=== PATIENT | female | born 1970 | race Caucasian/White ===

== ENCOUNTER 2019-12-04 15:13 | Emergency (ER) | payer OTHER ==
[2019-12-04 15:42] VITALS: TEMP 98.2; BMI 27.4
--- NOTE | 2019-12-04 15:56 | PDOC ---
History of Present Illness - General Chief Complaint: Palpitations Stated Complaint: PALPITATIONS Time Seen by Provider: 12/04/19 15:55 - History of Present Illness Initial Comments: Pt is a 49yo F with PMH depression, hypothyroid who presents with lightheadedness. Patient presents for episodes of warmth/dull ache in her chest, cold sweats, dry mouth, blurry vision, and lightheadedness/pre-syncope, followed by the need to defecate, then headache and left arm paresthesias. These episodes last for several minutes, and have occurred with increasing frequency which prompted her visit today. The episodes began in March, and she has been to multiple ED/urgent cares to assess these episodes, and she has been referred to neurology. She has seen Dr. Baljeet Arevalo, who scheduled her for a brain MRI today. PCP: Adam PMH: depression Meds: fluoxetine, synthroid Allergies: NKDA Review of Systems CONSTITUTIONAL:denies fever, chills, diaphoresis, generalized weakness, malaise, loss of appetite HEENT:reports blurry vision, denies rhinorrhea, nasal congestion, sore throat CARDIOVASCULAR:reports dull chest pain, lightheadedness, palpitations; denies irregular heart rate, peripheral edema RESPIRATORY:reports cough, shortness of breath, dyspnea with exertion, orthopnea, wheezing, hemoptysis GASTROINTESTINAL: denies abdominal pain, abdominal distension, nausea, vomiting, diarrhea, constipation, melena, hematochezia GENITOURINARY:denies dysuria, frequency, urgency, hesitancy, hematuria, flank pain, genital pain MUSCULOSKELETAL:denies myalgia, arthralgia, neck pain, back pain HEMATOLOGIC/IMMUNOLOGIC:denies easy bleeding, easy bruising ENDOCRINE: denies unexplained weight gain, unexplained weight loss, heat intolerance, cold intolerance NEUROLOGIC:denies headache, loss of consciousness, focal weakness or paresthesias, dizziness, unsteady gait, seizure, mental status changes, bladder or bowel incontinence SKIN:denies rash, itching, pallor PSYCHIATRIC:denies anxiety, depression, suicidal or homicidal ideation, hallucinations. Physical Exam General: awake, alert, fully oriented, in no acute distress, well developed, well nourished Head: normocephalic, atraumatic Eyes: PERRL, EOMI, anicteric sclera, conjunctiva clear ENT: Auricles normal inspection, hearing grossly normal, TMs clear bilaterally, nares patent, oropharynx clear without exudates, no nasal congestion, moist mucous membranes Neck: supple, normal ROM, no LAD, JVD or masses Lung: equal breath sounds b/l, CTA b/l, no crackles, wheezes; no distress, speaks full sentences Heart: RRR, normal S1, S2, no murmurs appreciated Abdomen: soft, non tender, normoactive bowel sounds, no guarding, rebound, masses Extremities: normal ROM, no edema, no erythema or tenderness, DP/PT pulses 2+ and symmetric, no clubbing, cyanosis Neuro: CN2-12 grossly intact, moves all extremities, normal speech, normal gait, sensation intact Skin: warm, dry, no rashes or lesions noted MDM Pt is a 49yo F with PMH depression, hypothyroid who presents with lightheadedness. DDx including but not limited to: ACS, arrhythmia, hyperthyroidism, anxiety/panic disorder Workup: labs, cxr, ekg TX: Reglan EKG: normal sinus rhythm, HR 87bpm, UT 182ms, QRS 70ms, QTc 450ms ED course Lab: no leukocytosis, no anemia, electrolytes WNL, ESR/CRP WNL, TSH WNL, troponin WNL, d-dimer WNL CT head: no acute intracranial pathology CXR: no acute chest pathology On reassessment, pt states JACKSON improved with Reglan. Patient stable for discharge. Informed of all lab and imaging results. Given follow up instructions and strict return precautions. Patient expressed understanding and agree to plan Disposition: Discharge to home Past History - Medical History Allergies/Adverse Reactions: Allergies Allergy/AdvReac Type Severity Reaction Status Date / Time ketorolac [From Toradol] Allergy Mild Rash Verified 12/04/19 15:33 Sulfa (Sulfonamide Allergy Mild Rash Verified 12/04/19 15:33 Antibiotics) COPD: No - Reproductive History Is Patient Now?: No - Psycho-Social/Smoking History Smoking History: Never smoked Have you smoked in the past 12 months: No Information on smoking cessation initiated: No - Substance Abuse Hx (Audit-C & DAST Scrn) How often the patient has a drink containing alcohol: 2-4 times / month Number of drinks the patient has on a typical day: 1 or 2 How often the patient has six or more drinks on one occasion: Never Score: In Men: 4 or > Positive; In Women: 3 or > Positive: 2 Screen Result (Pos requires Nsg. Audit-10AR): Negative In the last yr the pt used illegal drug/Rx for NonMed reason: No Score: Yes response is considered Positive: 0 Screen Result (Positive result requires Nsg. DAST-10): Negative *Physical Exam - Vital Signs Last Vital Signs Temp Pulse Resp BP Pulse Ox 98.2 F 72 17 138/85 100 12/04/19 15:30 12/04/19 15:30 12/04/19 15:30 12/04/19 15:30 12/04/19 15:30 ED Treatment Course - LABORATORY CBC & Chemistry Diagram: 12/04/19 16:35 12/04/19 16:35 Discharge - Discharge Information Problems reviewed: Yes Clinical Impression/Diagnosis: Palpitations Headache Qualifiers: Headache type: unspecified Headache chronicity pattern: acute headache Intractability: not intractable Qualified Code(s): R51 - Headache Condition: Stable Disposition: HOME - Follow up/Referral Referrals: Elinor Paez MD [Staff Physician] - Ramirez Medina MD [Primary Care Provider] - Ethan Askew MD [Staff Physician] - - Patient Discharge Instructions Patient Printed Discharge Instructions: DI for Headache, DI for Palpitations Additional Instructions: Please keep your MRI appointment for Sunday as scheduled. Please make a follow up appointment for the next week with the farm technician and the neurologist. Please drink plenty of fluids. Please take tylenol or motrin as needed for the headache. Please return to the ER with any further concerns or complaints. - Post Discharge Activity
[2019-12-04] MEDS ORDERED: METOCLOPRAMIDE HCL INJECTION 10 MG/2 ML VIAL IVPB ONE (17:33)
[2019-12-04] MEDS ORDERED: LACTATED RINGERS SOLUTION 1000 ML INFUS.BAG IV ONE (17:35)
[2019-12-04] MEDS ORDERED: METOCLOPRAMIDE HCL INJECTION 10 MG/2 ML VIAL ONE (17:39)
--- NOTE | 2019-12-04 18:11 | PDOC ---
Documentation entered by Tatiana Lewis SCRIBE, acting as scribe for Jo Ramírez DO. Jo Ramírez DO: This documentation has been prepared by the marisa, Tatiana Lewis SCRIBE, under my direction and personally reviewed by me in its entirety. I confirm that the documentation accurately reflects all work, treatment, procedures, and medical decision making performed by me. Attending Attestation - Resident Resident Name: Maria Elena Roberts - ED Attending Attestation I have performed the following: I have examined & evaluated the patient, The case was reviewed & discussed with the resident, I agree w/resident's findings & plan, Exceptions are as noted - HPI HPI: 12/04/19 17:28 The patient is a 49 year old female with past medical history significant for depression who presents to the emergency department with multiple complaints. The patient presents with frequent episodes of lightheadedness, warm sensation to chest, dull chest pain, dry mouth and blurry vision followed by a headache and left arm paresthesia. The patient reports this symptoms has been ongoing since March of 2019, and has been increasing in frequency since then. The patient reports multiple ER and UC visits for the symptoms, with unremarkable EKG, blood works and was given neurologist referral. The patient reports following up with the neurologist, who scheduled the patient for an MRI today. Patient was unable to get the MRI because she came to the ER for evaluation. Patient denies: fever, chills, or any other related symptoms. Allergies: ketorolac, sulfonamide antibiotics - Physicial Exam PE: 12/04/19 17:39 Gen: aaox3, nad heent: PERRL, EOMI, L temporal ttp neck: supple, no midline or lateral ttp heart: +s1s2 reg lungs: cta b/l abd: soft, nt/nd +bs ext: no c/c/e, no calf ttp neuro: cn ii-xii grossly intact, no focal deficits, muscle strength intact b/l UE and LE, pulses intact, sensation intact - Medical Decision Making 12/04/19 18:09 a/p: 49yo female with episodes of flushing sensation, cp, lightheaded and then sanchez after the episodes -concern for migraines vs acs vs anxiety/stress reaction -L temporal ttp, will send crp/esr and ct head, concern for temporal arteritis -will send labs, ekg, cxr, head ct -will medicate sanchez with reglan and ivf -will monitor and reassess 12/04/19 18:58 labs reviewed crp neg cxr clear head ct neg 12/04/19 18:59 dimer pending 12/04/19 19:18 dimer neg pt states sanchez resolved pt states she feels much better pt states she rescheduled her MRI for sunday pt states she is following with a neurologist at [facility] and has an appt for the end of december with cards, will give another cards referral. discussed the importance of keeping the MRI appt and following up with the neurologist pt stable for dc to home Heart Score/ECG Review - ECG Intrepretation Comment:: 12/04/19 18:10 sinus at 87, nl axis, nl interval, no acute st/t wave findings Discharge - Discharge Information Problems reviewed: Yes Clinical Impression/Diagnosis: Headache, Palpitations Condition: Stable Disposition: HOME - Admission No - Follow up/Referral Referrals: Ramirez Medina MD [Primary Care Provider] - Elinor Paez MD [Staff Physician] - Ethan Askew MD [Staff Physician] - - Patient Discharge Instructions Patient Printed Discharge Instructions: DI for Headache, DI for Palpitations Additional Instructions: Please keep your MRI appointment for Sunday as scheduled. Please make a follow up appointment for the next week with the site monitor and the neurologist. Please drink plenty of fluids. Please take tylenol or motrin as needed for the headache. Please return to the ER with any further concerns or complaints. - Post Discharge Activity
[2019-12-04 18:22] LABS: BASO % 0.7 % (0-2.0); EOS % 3.4 % (0-4.5); HEMATOCRIT 38.7 % (32.4-45.2); HEMOGLOBIN 13.3 GM/dL (10.7-15.3); LYMPH % 23.6 % (8-40); MCH 34.3 pg (25.7-33.7); MCHC 34.2 g/dl (32.0-36.0); MEAN PLT VOLUME 9.2 fl (7.5-11.1); MONO % 9.1 % (3.8-10.2); NEUT % 63.2 % (42.8-82.8); PLATELET COUNT 270 K/MM3 (134-434); RBC 3.87 M/mm3 (3.60-5.2); RDW 14.4 % (11.6-15.6); WHITE BLOOD COUNT 4.8 K/mm3 (4.0-10.0)
[2019-12-04 18:55] LABS: ALBUMIN 3.8 g/dl (3.4-5.0); ALK PHOS 76 U/L (45-117); ANION GAP 7 MMOL/L (8-16); BILIRUBIN,TOTAL 0.2 mg/dL (0.2-1); BLOOD UREA NITROGEN 15.2 mg/dL (7-18); CALCIUM 9.3 mg/dL (8.5-10.1); CHLORIDE 104 mmol/L (98-107); CO2 28 mmol/L (21-32); CREATININE 0.9 mg/dL (0.55-1.3); GLUCOSE,RANDOM 89 mg/dL (74-106); POTASSIUM 4.5 mmol/L (3.5-5.1); SGOT/AST 21 U/L (15-37); SGPT/ALT 31 U/L (13-61); SODIUM 138 mmol/L (136-145); TOT PROT 7.5 g/dl (6.4-8.2)
[2019-12-04 19:47] VITALS: BP 129/87; PULSE 67
--- NOTE | 2019-12-05 14:56 | EKG ---
Test Reason : Blood Pressure : / mmHG Vent. Rate : 087 BPM Atrial Rate : 087 BPM P-R Int : 182 ms QRS Dur : 070 ms QT Int : 374 ms P-R-T Axes : 057 054 043 degrees QTc Int : 450 ms NORMAL SINUS RHYTHM NORMAL ECG WHEN COMPARED WITH ECG OF 07-NOV-2007 23:43, VENT. RATE HAS INCREASED BY 29 BPM Confirmed by NOEL FIGUEROA MD ([id number]) on 12/05/2019 2:55:53 PM Referred By: Confirmed By:NOEL FIGUEROA MD
== END 2019-12-04 19:46 | disposition home or self-care (01) ==
LOC: JER 15:13
PROC: 3E033GC Introduction of Other Therapeutic Substance into Peripheral Vein, Percutaneous Approach (ICD-10-PCS; principal; 2019-12-04)
DX: R00.2 Palpitations (principal); R51 Headache
CPT/HCPCS: 36415; 70450-TC; 71045-TC-FY; 80053; 84443; 84484; 84703; 85025; 85379; 85651; 86140; 93005; 93010; 99285-25

== ENCOUNTER 2022-11-14 19:53 | Emergency (ER) | payer OTHER ==
[2022-11-14 20:08] VITALS: BP 133/91; PULSE 81; RESP 18; TEMP 98.4; BMI 27.4
[2022-11-14] MEDS ORDERED: METOCLOPRAMIDE HCL INJECTION 10 MG/2 ML VIAL IVPUSH ONE (21:08)
[2022-11-14] MEDS ORDERED: ACETAMINOPHEN 1000 MG/100 ML BAG IVPB ONE (21:09)
[2022-11-14] MEDS ORDERED: METOCLOPRAMIDE HCL INJECTION 10 MG/2 ML VIAL ONE (21:27)
[2022-11-14] MEDS ORDERED: ACETAMINOPHEN INJECTION 100 ML IVPB ONE (21:33)
[2022-11-14 21:53] LABS: HEMATOCRIT 40.1 % (32.4-45.2); HEMOGLOBIN 14.1 GM/dL (10.7-15.3); MCH 33.7 pg (25.7-33.7); MCHC 35.1 g/dl (32.0-36.0); MEAN PLT VOLUME 7.6 fl (7.5-11.1); PLATELET COUNT 340 10^3/uL (134-434); RBC 4.17 M/mm3 (3.60-5.2); RDW 14.8 % (11.6-15.6); WHITE BLOOD COUNT 4.2 K/mm3 (4.0-10.0)
[2022-11-14 21:54] LABS: PH,URINE 6.5 (5.0-8.0); URINE APPEARANCE CLEAR; URINE BILIRUBIN NEGATIVE (NEGATIVE); URINE COLOR YELLOW; URINE GLUCOSE (UA) NEGATIVE (NEGATIVE); URINE KETONE NEGATIVE (NEGATIVE); URINE LEUK ESTERASE NEGATIVE (NEGATIVE); URINE NITRITE NEGATIVE (NEGATIVE); URINE PROTEIN NEGATIVE (NEGATIVE); URINE UROBILINOGEN 0.2 mg/dL (0.2-1.0)
[2022-11-14 22:09] LABS: POTASSIUM 4.2 mmol/L (3.5-5.1)
[2022-11-14 22:10] LABS: ALBUMIN 3.7 g/dl (3.4-5.0); BLOOD UREA NITROGEN 10.4 mg/dL (7-18); CALCIUM 9.4 mg/dL (8.5-10.1)
[2022-11-14 22:13] LABS: CREATININE 1.1 mg/dL (0.55-1.3)
[2022-11-14 22:14] LABS: TOT PROT 7.6 g/dl (6.4-8.2)
[2022-11-14 22:15] LABS: BILIRUBIN,TOTAL 0.3 mg/dL (0.2-1)
[2022-11-14] MEDS ORDERED: MAG HYDROX/ALH/SMC/DPHA/LIDO 240 ML MOUTHWASH MM ONE (23:22)
[2022-11-15] MEDS ORDERED: MAG HYDROX/ALH/SMC/DPHA/LIDO 240 ML MOUTHWASH MM ONE (23:20)
== END 2022-11-15 00:35 | disposition left against medical advice (07) ==
LOC: JER 19:53
PROC: 3E033NZ Introduction of Analgesics, Hypnotics, Sedatives into Peripheral Vein, Percutaneous Approach (ICD-10-PCS; principal; 2022-11-14)
PROC: 3E033GC Introduction of Other Therapeutic Substance into Peripheral Vein, Percutaneous Approach (ICD-10-PCS; 2022-11-14)
DX: R10.10 Upper abdominal pain, unspecified (principal); R11.10 Vomiting, unspecified; R63.0 Anorexia; K29.00 Acute gastritis without bleeding
CPT/HCPCS: 36415; 74177-TC; 80053; 81003; 82150; 83605; 83690; 84703; 85027; 87086; 99285-25; Q9967